=== PATIENT | female | born 1930 | race Caucasian/White ===

== ENCOUNTER 2016-09-07 07:37 | Inpatient (IN) | payer MEDICARE, OTHER ==
[~2016-09-07] VITALS: Ht 149.9 cm; Wt 55.2 kg
--- NOTE | ~2016-09-07 | ECH ---
Transthoracic Echocardiography Report (TTE) Demographics Patient Name SANTIAGO OROPEZA Date of Study 09/12/2016 Patient Number [id number] Visit Number [id number] Date of 1930 Room Number 413 Gender Female Number Age 85 year(s) Referring Pearl Ty MD Triage Registered Nurse Joanna Moore [facility] Physician Willie Hurd MD Physician Interpreting Robbie SUN Director Of Sports Medicine Physician Sixto Supervising Ordering Pearl Ty MD, MD/MLP Physician Nurse [facility] Laboratory Technician Conclusions Summary Technically adequate exam. The estimated left ventricular ejection fraction is 40-45%. Mild to moderate left ventricular hypertrophy. Paradoxical septal motion . Diastolic assessment reveals Grade I diastolic dysfunction. Moderately dilated right ventricle with mildly reduced systolic function. The left atrium is severely dilated by LA volume index measurement. The right atrium is severely dilated. Moderate mitral regurgitation by color Doppler. The mitral regurgitation jet is anteriorly directed . Consider to UMA to evaluate further. There is severe aortic stenosis by the Continuity Equation. The peak velocity is 4 m/s, the mean gradient is 41 mmHg, and the valve area based on the continuity equation is 0.6 cm2, stroke volume index is 35ml/m2. There is mild to moderate eccentric aortic regurgitation by color Doppler. Moderate-severe tricuspid regurgitation by color Doppler. There is severe pulmonary hypertension. The pulmonary pressure (RVSP) is 59 mmHg. Trivial global pericardial effusion. Recommendation The patient will be given the results of this study by the physician who ordered the exam. Procedure Type of Study TTE procedure:Echo Complete SF. Procedure Date Date: 09/12/2016 Start: 12:29 PM Technical Quality: Adequate visualization Indications:Hypotension and Pleural effusion. Additional Indications:ESRD Appropriate Use Criteria: 9 Height: 59 inches Weight: 121 pounds BSA: 1.49 m Rhythm: Paced HR: 76 bpm BP: 91/42 mmHg Allergies - Iodine. - Other:(Heparin). M-Mode/2D Measurements LV Diastolic Dimension: 4.38 cm LV Systolic Dimension: 3.41 cm LV Septum Diastolic: 1.27 cm LV PW Diastolic: 1.19 cm AO Root Dimension: 2.18 cm Cardiac Output: 4.05 l/min LA Dimension: 3.86 cm Cardiac Index: 2.72 l/min*m RV Diastolic Dimension: 4.02 cm LA volume index: 85 ml/m LVOT: 1.75 cm LVOT VTI: 22.18 cm RV Base: 5 cm LV Stroke volume: 53.32 ml RV Mid: 2.5 cm LV Stroke volume index: 35.79 ml/m RV Length: 6.7 cm TAPSE: 2.7 cm TDI-S': 11 cm/s Doppler Measurements AV Peak Velocity: 4.08 m/s MV Peak E-Wave: 1.38 m/s AV Peak Gradient: 66.59 mmHg MV Peak A-Wave: 1.51 m/s AV Mean Gradient: 41.04 mmHg MV E/A Ratio: 0.91 LVOT Peak Velocity: 0.93 m/s MV P1/2t: 50.3 msec AV Area (Continuity):0.56 cm AV P1/2t: 478.6 msec MV Deceleration Time: 173.5 msec TR Velocity:3.5 m/s MV Area (PHT): 4.37 cm TR Gradient:49 mmHg PV Peak Velocity: 0.71 m/s Estimated RAP:10 mmHg PV Peak Gradient: 2.01 mmHg Estimated RVSP: 59 mmHg Estimated PASP: 59 mmHg RA Area: 28.96 cm Findings Left Ventricle The left ventricle is normal in size . Mild to moderate left ventricular hypertrophy. Paradoxical septal motion . Diastolic assessment reveals Grade I diastolic dysfunction. Right Ventricle Mildly dilated right ventricle with normal systolic function. Left Atrium The left atrium is severely dilated by LA volume index measurement. Right Atrium The right atrium is severely dilated. Device lead seen in the right atrium. Mitral Valve Moderate mitral annular calcification. Moderate mitral regurgitation by color Doppler. The mitral regurgitation jet is anteriorly directed . Aortic Valve There is moderate aortic stenosis by the Continuity Equation. The peak velocity is 4 m/s, the mean gradient is 41 mmHg, and the valve area based on the continuity equation is 0.6 cm2, stroke volume index is 35ml/m2. Peak velocity found at apical view. There is mild to moderate eccentric aortic regurgitation by color Doppler. Tricuspid Valve Normal appearing tricuspid valve. Moderate-severe tricuspid regurgitation by color Doppler. There is moderate pulmonary hypertension. The pulmonary pressure (RVSP) is 59 mmHg. Pulmonic Valve Normal pulmonic valve structure and function. Pericardial Effusion Trivial global pericardial effusion. Miscellaneous Visualized portions of the aortic root and ascending aorta appear normal in size. Pleural Effusion Pleural effusion present. Contractility Score LV regional wall motion:(0-Non visualized 1-Normal 2-Hypokinesis 3-Akinesis 4-Dyskinesis 5-Aneurysm) Signature
[~2016-09-07 07:37] MED LIST: DILAUDID2 MG PO; DUONEB DPS3 ML IH; EMLA CREAM 2.5%5 GM TP; FLEXERIL DPS5 MG PO; MUCINEX D ER T1 EACH PO; NEPHRO-VITE1 TAB PO; NEURONTIN DPS100 MG PO; NOREPINEPHRINE IV; NORMAL SALINE FL5 ML IV; PAMELOR DPS10 MG PO; PREDNISONE20 MG PO; PRILOSEC DPS20 MG PO; PROTONIX40 M1 IV; RENAGEL800 MG PO; RENVELA800 MG PO; TYLENOL DPS325 MG PO; TYLENOL EXTRA500 M1 PO; VANCOCIN-DPS1 GM IV; ZOSYN 3.3753.375 GM IV
--- NOTE | 2016-09-10 14:21 | CO ---
ADMIT: 09/07/2016 RM/LOC: 413 [facility] MR#: [id number] 2620 [facility] [address] [place] [id number] [place] [address] Consultation SEX: F AGE: 85 : 1930 DATE OF CONSULTATION: 09/10/2016 ATTENDING PHYSICIAN: Kolton Kang CONSULTING PHYSICIAN: Mary Limon APRN TIME IN: 0825 hours. TIME-OUT: 0915 hours. REASON FOR CONSULTATION: Supportive care consultation was requested by Dr. Kang for discussion of goals for care. HISTORY OF PRESENT ILLNESS: Mrs. Wiggins is a delightful 85-year-old female with a history of end-stage renal disease for which she is on hemodialysis. She was hospitalized here at [facility] from 08/16 through the 08/22 with viral pneumonia and dysphagia. She then discharged to long-term care and had recently gone home with her daughter. She presented to the emergency room on 09/07 with weakness, rash, and confusion. Her LFTs have been elevated. Plan is for CT of the abdomen and pelvis today. She is also complaining of shortness of breath. Speech Therapy is following her and she is on a modified diet of pureed with nectar thick liquid. Apparently, the patient has verbalized to her family in the past that she is ready to "go home" meaning to [facility]. Due to her complexities, supportive care consultation was requested to discuss goals for care. In terms of advanced directives, the patient is a do not resuscitate/do not intubate status. The patient does have a living will which we have a copy of and also has healthcare [id number] paperwork which is on file. Her 2 daughters, Lottie Brannon and Preeti Coronel serve as her durable power-of- city attorney for healthcare. Lottie's phone number is [phone] and Preeti's number is [phone]. Symptomatically, the patient appears weak and debilitated. She denies pain. She is mildly confused at times. She is complaining of intermittent dyspnea. PAST MEDICAL HISTORY: 1. End-stage renal disease, on dialysis. 2. History of colostomy. 3. History of complete heart block, status post pacemaker placement. 4. Diabetes. 5. History of stroke. 6. Hyperlipidemia. 7. Hypertension. 8. Peptic ulcer disease. 9. History of subarachnoid hemorrhage for which she is off anticoagulation indefinitely. 10.Anemia. ADMIT: 09/07/2016 RM/LOC: 413 [facility] MR#: [id number] [address] [place] [id number] [place] [address] Consultation SEX: F AGE: 85 : 1930 PAST SURGICAL HISTORY: 1. Cholecystectomy. 2. Carpal tunnel release. 3. Cataracts. ALLERGIES: THE PATIENT IS ALLERGIC TO IODINE, HEPARIN, AND DYES. CURRENT MEDICATIONS: Please see the patient's MAR for specific routes and dosages. Her current medications are as follows: 1. Nilstat solution. 2. Levaquin. 3. Mucomyst. 4. Zosyn. 5. Renagel. 6. DuoNeb. 7. Mucinex. 8. Protonix. 9. Nephro-Le. 10.Maalox. 11.Tylenol. 12.Surfak. 13.Nitrostat. SOCIAL HISTORY: The patient was living alone up until her prior hospital stay. Currently, she has been at home after a stay in a correction, but her daughter was helping with her care. She does not use alcohol or tobacco. FAMILY HISTORY: Reviewed per chart and significant for cancer in her mother and father. FUNCTIONAL REVIEW: Prior to her hospital stay, she was at home with her daughter helping her with care. She could ambulate but was weak with a walker. Her palliative performance scale prior to admission was around 50%. Currently, she is mostly in bed. She is mainly assistance. She is a little confused. Her current palliative performance scale is 40%. REVIEW OF SYSTEMS: A 10-point review of systems was completed and other than those pertinent positives and negatives mentioned the HPI, it is negative. PHYSICAL EXAMINATION: GENERAL: The patient is examined in the bed. She is in no acute distress. VITAL SIGNS: Temperature 98.5, pulse 98, respirations 18, blood pressure 97/49, oxygen 91% on room air. HEENT: Head is normocephalic. Pupils are 3 mm and brisk. Oral mucosa pink with fair dentition. NECK: Supple. RESPIRATORY: Respirations are nonlabored. However, the patient does seem to ADMIT: 09/07/2016 RM/LOC: 413 [facility] MR#: [id number] [address] [place] [id number] [place] [address] Consultation SEX: F AGE: 85 : 1930 have to take a breath every few words. LUNGS: Diminished in the bases bilaterally. CARDIOVASCULAR: Rate and rhythm regular with murmur noted. 1+ bilateral lower extremity edema noted. GASTROINTESTINAL: Soft and nontender. She does have an ostomy. MUSCULOSKELETAL: Generalized weakness. No obvious joint deformities. INTEGUMENTARY: Skin turgor is fair. NEUROLOGIC: Alert and oriented but a little forgetful. She will follow commands. PSYCHIATRIC: Calm and cooperative. No agitation noted. DIAGNOSTIC DATA: Sodium 136, potassium 5.0, BUN 37, creatinine 5.0, total protein is 6.3, albumin 3.0, alkaline phosphatase 224, AST 301, LDH 386, and ALT 537. IMPRESSION: 1. Debility. 2. Mild confusion. 3. Fatigue. 4. Dyspnea. 5. Dysphagia. 6. Malaise. 7. Moderate protein-calorie malnutrition. 8. Healthcare-acquired pneumonia. 9. Elevated LFTs. 10.History of cerebrovascular accident. 11.Palliative care. 12.The patient is a DNR/DNI. PLAN OF TREATMENT: 1. I was able to meet with the patient and her 2 daughters including her healthcare arofo-ex-nimzsiai Preeti at the bedside. We reviewed the patient's overall status and goals for the time ahead. All recognized that the patient has had a rough past few weeks. The patient's daughter states that the patient has verbalized over the course of the past week that she is ready to "go home" meaning go to [facility]. I explored this with the patient. She states that she has been frustrated at times, but at this point, is not ready to stop dialysis and focus only on comfort. She does understand that hospice care is available in the event that she wishes to proceed in this direction. The patient's family is very supportive of her and state that they will support her when she is ready to stop ongoing aggressive care and focus on comfort only. The patient and her family rely heavily on Dr. Kang for guidance in this in the time ahead and I have told him this. They agree to ongoing discussions in the time ahead pending the patient's status. For the time being, they do elect ongoing aggressive care. 2. We did review code status and the patient did direct a do not resuscitate/do not intubate status. ADMIT: 09/07/2016 RM/LOC: 413 [facility] MR#: [id number] [address] [place] [phone] [place] [address] Consultation SEX: F AGE: 85 : 1930 3. The patient does have advanced directives, and qsbsz-ne-jfvdkygs paperwork in place and we have copies of this on the chart. 4. The patient's daughter is requesting that social work manager stop by to discuss potential private duty help at home after the patient discharges from the hospital. The patient's daughter is providing care giving at this time and would like help particular during the evenings if this is at all possible. I will have social work stop by. 5. We will continue to follow along in the care of this very kind patient. We would like to thank Dr. Kang for the invitation to participate in this patient's care. Total consultation time was 50 minutes from 0825 hours 0915 hours with 27 minutes from 0830 hours 0857 hours spent [id number] with the patient and family discussing goals for care and providing counseling and support. We will continue to follow along. Mary Limon APRN/ иван JOB #: [id number] CC: Kolton Kang, Attending Physician Kolton Kang, Family Physician
--- NOTE | 2016-09-11 13:05 | ER ---
ADMIT: 09/07/2016 RM/LOC: 413 [facility] MR#: [id number] [address] [address] SANTIAGO OROPEZA Nasir [place] [address] Emergency Room Report SEX: F AGE: 85 : 1930 DATE: 09/07/2016 HISTORY OF PRESENT ILLNESS: An 85-year-old, brought in by her daughter because of increasing weakness and intermittent confusion. She apparently recently has been discharged from the senior living after convalescence from a pneumonia. She is a dialysis dependent patient with hypertension. PHYSICAL EXAMINATION: GENERAL: Reveals a frail-appearing, 85-year-old female with mild amount of distress. HEENT: Normocephalic and atraumatic. LUNGS: Clear to auscultation bilaterally. CARDIOVASCULAR: 3/6 systolic ejection murmur. ABDOMEN: Soft, nontender, positive bowel sounds. No masses, guarding, or rebound. EXTREMITIES: Without clubbing, cyanosis, or edema. PERTINENT LABS: Revealed lactic acid 2.2. White count 10.6. Chest x-ray revealed right small pleural effusion and a left-sided infiltrate. UA was also positive. The patient was being admitted with pneumonia and UTI. Dread Lawrence MD/ иван JOB #: [id number] CC: Kolton Kang MD, Attending Physician Kolton Kang MD, Family Physician
--- NOTE | 2016-09-14 08:13 | HP ---
ADMIT: 09/07/2016 RM/LOC: 413 [facility] MR#: [id number] [address] [address] [place] [address] History and Physical SEX: F AGE: 85 : 1930 DATE OF SERVICE: CHIEF COMPLAINT: Confusion and weakness. HISTORY OF PRESENT ILLNESS: The patient is an absolutely fantastic 85-year- old female, who presented to the emergency room today with increasing weakness, rash, more confusion. The patient had previously been in the hospital this last month for viral pneumonia and dysphagia. She had been recuperating at [facility]. Had made quite a good recovery. Was back to walking and ambulating on her own. Just returned back home to her home. Had been eating recently well. Ate a good breakfast yesterday according to daughter. She has great family support. The patient otherwise does not endorse any pain. No abdominal pain. No new shortness of breath. No fevers. No chills reported. Denies any nausea at this time. Very confused however compared to her baseline. Just does not act right. PAST MEDICAL HISTORY: 1. End-stage renal disease, on dialysis. 2. History of colostomy. 3. History of complete heart block, status post pacemaker placement. 4. Diabetes, on diet control. 5. History of stroke. 6. Hyperlipidemia. 7. Hypertension. 8. History of peptic ulcer disease. 9. History of subarachnoid hemorrhage, off anticoagulation indefinitely. 10.Anemia. PAST SURGICAL HISTORY: Significant for cholecystectomy, carpal tunnel release, cataracts. FAMILY HISTORY: Significant for cancer in both her mother and father. SOCIAL HISTORY: She lives alone but has daughters who are very closely involved. No history of tobacco abuse. MEDICATIONS: She is on: 1. Renvela. 2. Nephro-Le. 3. Omeprazole. 4. Mucinex. 5. DuoNeb. See list for full details. REVIEW OF SYSTEMS: As per HPI. Otherwise, fully reviewed and negative. Somewhat suspect accuracy due to her confusion. PHYSICAL EXAMINATION: VITAL SIGNS: Temperature 97.9, pulse 90, respiratory ADMIT: 09/07/2016 RM/LOC: 413 [facility] MR#: [id number] [address] [address] [place] [address] History and Physical SEX: F AGE: 85 : 1930 rate 20, blood pressure 109/45, O2 saturation 93% on room air. GENERAL: She is alert and oriented times person and place. Overall very groggy and confused from her baseline. HEENT: Normocephalic, atraumatic. Pupils are equal bilaterally. No icterus. Dry mucous membranes. NECK: No lymphadenopathy. Soft, supple. Trachea midline. LUNGS: Clear to auscultation anteriorly. Diminished at bases with rales in her left base. Symmetric thoracic excursion. HEART: Regular rate and rhythm. No murmurs, rubs, or gallops. ABDOMEN: Soft. Nontender. Bowel sounds present. She got her ostomy in place in the right lower quadrant. Normal bowel contents there. EXTREMITIES: No cyanosis, clubbing, or edema. MUSCULOSKELETAL: 5/5 strength in all 4 extremities. NEUROLOGICAL: No focal deficits noted. SKIN: She has this rash, multiple, punctate, small 2-3. Clustered lesions on her right leg. Also had one behind her right knee. Kind of a dark eschar in the one behind her knee. Is hyperemic on the border with some dried central pustular appearance. Also, similar on her abdomen. LABORATORY AND X-RAY DATA: Reviewed. Significant for alkaline phosphatase 303, AST at 255, ALT at 224, procalcitonin is 0.8. Lactic acid 2.2, potassium 5.6. Sodium 130, white count of 12.6, hemoglobin 11.4, INR 1.2. Chest x-ray, I reviewed. She has a little bit of atelectasis in her left base compared to her film from prior earlier in the month. Atelectasis versus infiltrate. ASSESSMENT AND PLAN: 1. Hospital acquired pneumonia. 2. Increased LFTs. 3. End-stage renal disease, on dialysis. 4. History of immune thrombocytopenia. 5. 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 6. Dysphagia. 7. DNR/DNI status. PLAN: At this point in time, it is really obvious that she has the elevated LFTs. She is status post cholecystectomy in the past. Has had to have ERCP in the past due to bile duct obstruction. We will get repeat evaluation and imaging. Try to get an ultrasound today. If not, we will get a CT scan to further evaluate. Trend her enzymes. Start her on antibiotics. Concern would be also for cholangitis. Otherwise, atelectasis versus pneumonia as primary cause. We will see how she trends in the next 24 hours. Regarding ADMIT: 09/07/2016 RM/LOC: 413 [facility] MR#: [id number] [address] [place] [phone] [place] [address] History and Physical SEX: F AGE: 85 : 1930 her rash, really unclear. Took one solitary lesion will be worried about zoster, but it is so diffuse, I do not think that is the case. Other concern would be for pyoderma gangrenosum. We will do antibiotics and just monitor the course. We will ask Nephrology to see her for dialysis needs. She looks a little hypovolemic right now. We will give her another 500 mL bolus. She has made comments about not wishing to be alive anymore. We will have Supportive Care see her. I think we need to make sure we have limits to her aggressiveness of her care in place such as DNR/DNI, which she has voiced in the past. We will get an assessment of what is going on before we can and try to determine where we are going to go with her care as far as aggressiveness should she need any sort of surgical or ERCP-type of intervention. We will see what imaging shows. Daughter is at bedside and in agreement. Kolton Kang MD/ иван JOB #: [id number] CC: Kolton Kang, Attending Physician Kolton Kang, Family Physician
--- NOTE | 2016-09-15 08:47 | CO ---
ADMIT: 09/07/2016 RM/LOC: 413 [facility] MR#: [id number] [address] [address] [place] [address] Consultation SEX: F AGE: 85 : 1930 DATE OF CONSULTATION: 09/07/2016 ATTENDING PHYSICIAN: Kolton Kang CONSULTING PHYSICIAN: Lorrie Tapia MD REASON FOR CONSULTATION: End-stage renal disease, on hemodialysis, hyperkalemia. HISTORY OF PRESENT ILLNESS: The patient is 85-year-old female, who has had several hospitalizations recently. She typically dialyzes on a Saturday, Saturday schedule with [facility] dialysis here in [place]. Her last dialysis was this past Saturday. She was on Lasix recently at the long-term and went home this past Saturday. She has been weak and confused at home. Her daughter brought her in to the emergency room and she has been admitted with a diagnosis of pneumonia. She is also noted to have elevated LFTs for which we are planning to do abdominal ultrasound. At the time of this encounter, she notes that she has been having a cough. Denies any fevers at home. Cough has been nonproductive. Denies any urinary complaints. Daughter endorses that she has been confused, otherwise. So, she is perfectly oriented. She has no other complaints. REVIEW OF SYSTEMS: A complete review of systems is negative in detail except as mentioned in history of present illness above. PAST MEDICAL HISTORY: 1. Hypertension. 2. Type 2 diabetes mellitus. 3. CVA with left-sided weakness. 4. Atrial fibrillation. 5. End-stage disease, on hemodialysis. 6. 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 7. Peptic ulcer disease. 8. Intracerebral hemorrhage. 9. Partial colectomy with ostomy previously. ALLERGIES: IODINE AND HEPARIN. MEDICATIONS: Reviewed in the chart. FAMILY HISTORY: Cancer runs in her family. No history of chronic kidney disease. SOCIAL HISTORY: Now back living at home. Lifelong nonsmoker. She is . No alcohol or recreational drug use. PHYSICAL EXAMINATION: VITAL SIGNS: Temperature 97.9 Fahrenheit, pulse 90, blood pressure 109/45. GENERAL: She is comfortable. ADMIT: 09/07/2016 RM/LOC: 413 [facility] MR#: [id number] [facility] [address] [address] [place] [address] Consultation SEX: F AGE: 85 : 1930 HEENT: Head is nontraumatic and normocephalic. Extraocular movements are intact. Oral mucosa dry. NECK: Supple. No JVD. CHEST: Clear to auscultation. CVS: Regular rhythm. S1 and S2 heard. No rubs, murmurs, or gallops. ABDOMEN: Soft. Nontender. EXTREMITIES: No edema. Access left upper arm AV fistula with good thrill and bruit. LABORATORY AND X-RAY DATA: Reviewed. BMP with sodium 130, potassium 5.6, BUN is 44, hemoglobin is 11.4. Chest x-ray with right pleural effusion and left retrocardiac opacity. ASSESSMENT AND PLAN: 1. End-stage renal disease, on hemodialysis. 2. Hyperkalemia. 3. Anemia of chronic kidney disease. 4. Hyponatremia. I will plan to dialyze her because of her hyperkalemia. I will also address her hyponatremia on dialysis. She does not need any erythropoietin stimulating agents today, and her hemoglobin is acceptable. I will not provide her any ultrafiltration because her blood pressures are on the lower side. She, otherwise, seems volume depleted and is getting IV fluids. Thank you for this consultation and allowing me the opportunity to participate in this patient's care. Please do not hesitate to contact me with any questions. Lorrie Tapia MD/ иван JOB #: [id number] CC: Kolton Kang, Attending Physician Kolton Kang, Family Physician
--- NOTE | 2016-09-15 10:07 | DS ---
ADMIT: 09/07/2016 RM/LOC: 413 [facility] MR#: [id number] [id number] [place] [address] Discharge Summary SEX: F AGE: 85 : 1930 ADMISSION DATE: 09/07/2016 DISCHARGE DATE: 09/13/2016 CONSULTATIONS: 1. Supportive care. 2. Nephrology, Dr. Taipa. FINAL DIAGNOSES: 1. Pneumonia hospital-acquired, possible gram-negative segundo. 2. 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 3. Aortic stenosis severe. 4. End-stage renal disease, on dialysis. 5. History of immune thrombocytopenia. 6. Rash. 7. Dysphagia. 8. Pleural effusion, transudative. REASON FOR ADMISSION: The patient is an 85-year-old female, presented to the emergency room with increasing obtundation, confusion, weakness. She just left the shelter a short while prior and had been improving then. This was a dramatic down or change. Admitted for further stabilization. HOSPITAL COURSE: The patient was admitted. [place] to have pneumonia. Started on broad-spectrum antibiotics. Her LFTs were grossly elevated. Had multiple evaluations of this quitting CT scan, ultrasound. She did not have clear etiology most likely is a passive congestive hepatopathy. Echo repeated showed worsening aortic stenosis. Her mental status dramatically worsened. Became more agitated. Had lack of improvement overall. Blood pressures are borderline. Overall long discussions were had with family. Ultimately opted to keep her comfortable as would be her wishes in this situation. She was kept comfortable and transitioned over to comfort cares. Ultimately expiring while in the hospital with family at bedside. Kolton Kang MD/ isaiah JOB #: [id number] CC: Kolton Kang MD, Attending Physician Kolton Kang MD, Family Physician
== END 2016-09-13 15:26 | disposition expired | DRG 871 ==
LOC: ER 07:37 → 4PCU 10:00
PROVIDERS: ADMIT Internal Medicine
PROC: 5A1D60Z (ICD-10-PCS; principal; 2016-09-07)
DX: A41.9 Sepsis, unspecified organism (principal); J15.6 Pneumonia due to other Gram-negative bacteria; G93.41 Metabolic encephalopathy; L89.312 Pressure ulcer of right buttock, stage 2; E44.0 Moderate protein-calorie malnutrition; L89.322 Pressure ulcer of left buttock, stage 2; N18.6 End stage renal disease; I12.0 Hypertensive chronic kidney disease with stage 5 chronic kidney disease or end stage renal disease; N39.0 Urinary tract infection, site not specified; I69.354 Hemiplegia and hemiparesis following cerebral infarction affecting left non-dominant side; E87.1 Hypo-osmolality and hyponatremia; Z51.5 Encounter for palliative care; E11.22 Type 2 diabetes mellitus with diabetic chronic kidney disease; R21 Rash and other nonspecific skin eruption; K76.1 Chronic passive congestion of liver; I48.91 Unspecified atrial fibrillation; I35.0 Nonrheumatic aortic (valve) stenosis; R13.10 Dysphagia, unspecified; N25.0 Renal osteodystrophy; R79.89 Other specified abnormal findings of blood chemistry; E87.5 Hyperkalemia; D63.1 Anemia in chronic kidney disease; E78.5 Hyperlipidemia, unspecified; Z99.2 Dependence on renal dialysis; Z93.3 Colostomy status; Z95.0 Presence of cardiac pacemaker; Z87.11 Personal history of peptic ulcer disease; Z66 Do not resuscitate